=== PATIENT | male | born 1975 | race American Indian/Alaskan Native ===

== ENCOUNTER 2019-09-05 08:20 | Emergency (ER) | payer SELFPAY ==
[2019-09-05] MEDS ORDERED: SILVER NITRATE APPLICATOR 1 EA TP ONE ×2 (09:56→09:59)
[2019-09-05] MEDS ORDERED: OXYMETAZOLINE 0.05% NASAL SPRAY NS ONE (09:56)
[2019-09-05 10:10] VITALS: BP 152/96
--- NOTE | 2019-09-05 10:55 | Emergency Department Report ---
ED General Adult HPI - General Chief complaint: Nosebleed Stated complaint: NOSE BLEED Time Seen by Provider: 09/05/19 09:50 Source: patient Mode of arrival: Ambulatory Limitations: No Limitations - History of Present Illness Initial comments: Patient is a 44-year-old gentleman who is presenting with nosebleed. Patient states he has blood coming from the left nostril since this morning. Patient's had a cough and congestion for the last 2-3 days. He denies any fevers chills but does have some mild shortness of breath. Patient's states he was quite upset at the time of his arrival because of the nosebleed C believe that his elevated blood pressure is coming from that. Patient has no history of hypertension. Patient denies chest pain nausea vomiting diarrhea neck Stiffness or sore throat this time. Severity scale (0 -10): 0 - Related Data Previous Rx's Medication Instructions Recorded Last Taken Type Benzonatate [Tessalon Perles] 100 mg PO Q8HR #10 capsule 09/05/19 Unknown Rx Fluticasone [Flonase] 1 spray NS QDAY #1 bottle 09/05/19 Unknown Rx predniSONE [Deltasone] 20 mg PO QDAY #5 tab 09/05/19 Unknown Rx Allergies Allergy/AdvReac Type Severity Reaction Status Date / Time No Known Allergies Allergy Unverified 09/05/19 08:24 ED Review of Systems ROS: Stated complaint: NOSE BLEED Other details as noted in HPI Comment: All other systems reviewed and negative ED Past Medical Hx - Past Medical History Previous Medical History?: No - Surgical History Past Surgical History?: No - Social History Smoking Status: Never Smoker Substance Use Type: None - Medications Home Medications: Home Medications Medication Instructions Recorded Confirmed Last Taken Type Benzonatate [Tessalon Perles] 100 mg PO Q8HR #10 capsule 09/05/19 Unknown Rx Fluticasone [Flonase] 1 spray NS QDAY #1 bottle 09/05/19 Unknown Rx predniSONE [Deltasone] 20 mg PO QDAY #5 tab 09/05/19 Unknown Rx ED Physical Exam - General Limitations: No Limitations General appearance: alert, in no apparent distress - Head Head exam: Present: atraumatic, normocephalic - Eye Eye exam: Present: normal appearance, PERRL, EOMI - ENT ENT exam: Present: mucous membranes moist, other (patient has a small amount of blood coming from the left nostril. He has turbinates do appear to be erythematous with some small punctate areas of bleeding.) - Neck Neck exam: Present: normal inspection - Respiratory Respiratory exam: Present: normal lung sounds bilaterally. Absent: respiratory distress, wheezes, rales, rhonchi, stridor - Cardiovascular Cardiovascular Exam: Present: regular rate, normal rhythm. Absent: systolic murmur, diastolic murmur, rubs, gallop - GI/Abdominal GI/Abdominal exam: Present: soft, normal bowel sounds. Absent: distended, tenderness, guarding, rebound - Rectal Rectal exam: Present: deferred - Extremities Exam Extremities exam: Present: normal inspection - Back Exam Back exam: Present: normal inspection - Neurological Exam Neurological exam: Present: alert, oriented X3 - Psychiatric Psychiatric exam: Present: normal affect, normal mood - Skin Skin exam: Present: warm, dry, intact, normal color. Absent: rash ED Course Vital Signs 09/05/19 09/05/19 08:21 10:09 Pulse Rate 90 75 Respiratory 20 18 Rate Blood Pressure 185/119 Blood Pressure 152/96 [Left] O2 Sat by Pulse 98 98 Oximetry ED Medical Decision Making - Medical Decision Making The patient's lungs are clear to auscultation his O2 sat was within normal limits. Patient likely with an acute bronchitis causing some dryness in the upper respiratory area that is leading to his nosebleed. Patient was given some Afrin and was able to use a silver nitrate stick to cauterize the small punctate areas that were bleeding. Patient is monitored and had no further bleeding before the time of discharge. Patient be given medications for his up per respiratory symptoms as well patient be discharged home. Patient's blood pressure did improve on its own patient can follow-up as an outpatient. Critical care attestation.: If time is entered above; I have spent that time in minutes in the direct care of this critically ill patient, excluding procedure time. ED Disposition Clinical Impression: Epistaxis Acute bronchitis Qualifiers: Bronchitis organism: unspecified organism Qualified Code(s): J20.9 - Acute bronchitis, unspecified Disposition: DC-01 TO HOME OR SELFCARE Is pt being admited?: No Does the pt Need Aspirin: No Condition: Stable Instructions: Acute Bronchitis (ED), Epistaxis (ED) Additional Instructions: The Sinex spray that was given to you in the emergency department should be used twice a day FOR the next 2 days and then discard Referrals: PRIMARY CARE, [Primary Care Provider] - 3-5 Days Time of Disposition: 10:54
== END 2019-09-05 11:02 | disposition home or self-care (01) ==
LOC: ED 08:20
DX: J20.9 Acute bronchitis, unspecified (principal); R04.0 Epistaxis

== ENCOUNTER 2020-08-17 15:30 | Emergency (ER) | payer BC ==
--- NOTE | 2020-08-17 18:13 | Emergency Department Report ---
- General Chief Complaint: Upper Respiratory Infection Stated Complaint: COLD Time Seen by Provider: 08/17/20 17:56 Source: patient Mode of arrival: Ambulatory Limitations: No Limitations - History of Present Illness Initial Comments: 44-year-old -[place] male in no acute distress complaining of flu-like symptoms lost of taste and smell lost of appetite, subjective fever, body aches, dry cough no vomiting 2 episodes of loose stool. Symptoms started 2 days ago he desires denies any past medical history not currently taking any medications he is a non-smoker. Patient states that 2 weeks ago he was tested for Covid and it was negative he has no known sick contact. He denies chest pain and shortness of breath MD Complaint: cough -: days(s) (2) Severity: moderate Consistency: constant Improves With: nothing Worsens With: nothing Associated Symptoms: chills, myalgias, cough, nausea, diarrhea Treatments Prior to Arrival: none - Related Data Previous Rx's Medication Instructions Recorded Last Taken Type Benzonatate [Tessalon Perles] 100 mg PO Q8HR #10 capsule 09/05/19 Unknown Rx Fluticasone [Flonase] 1 spray NS QDAY #1 bottle 09/05/19 Unknown Rx predniSONE [Deltasone] 20 mg PO QDAY #5 tab 09/05/19 Unknown Rx Amoxicillin [Trimox CAP] 1,000 mg PO Q8H 7 Days #42 capsule 08/17/20 Unknown Rx Azithromycin [Zithromax Z-HOLLIS] 0 mg PO DAILY #1 pack 08/17/20 Unknown Rx methylPREDNISolone [Medrol 4MG 4 mg PO DAILY #1 pkg 08/17/20 Unknown Rx DOSEPAK (21 tabs)] Allergies Allergy/AdvReac Type Severity Reaction Status Date / Time No Known Allergies Allergy Unverified 09/05/19 08:24 ED Review of Systems ROS: Stated complaint: COLD Other details as noted in HPI Comment: All other systems reviewed and negative Constitutional: chills, fever (Subjective), malaise ENT: denies: ear pain, throat pain, dental pain, hearing loss Respiratory: cough (Dry cough) Cardiovascular: denies: chest pain, palpitations, dyspnea on exertion Endocrine: denies: excessive sweating, flushing, intolerance to cold, intolerance to heat, increased urine Gastrointestinal: denies: abdominal pain, nausea, vomiting, constipation, melena Genitourinary: denies: dysuria Neurological: denies: headache, weakness, numbness, paresthesias Psychiatric: denies: anxiety, depression, auditory hallucinations, visual hallucinations, homicidal thoughts ED Past Medical Hx - Past Medical History Previous Medical History?: No - Surgical History Past Surgical History?: No - Social History Smoking Status: Never Smoker - Medications Home Medications: Home Medications Medication Instructions Recorded Confirmed Last Taken Type Benzonatate [Tessalon Perles] 100 mg PO Q8HR #10 capsule 09/05/19 Unknown Rx Fluticasone [Flonase] 1 spray NS QDAY #1 bottle 09/05/19 Unknown Rx predniSONE [Deltasone] 20 mg PO QDAY #5 tab 09/05/19 Unknown Rx Amoxicillin [Trimox CAP] 1,000 mg PO Q8H 7 Days #42 capsule 08/17/20 Unknown Rx Azithromycin [Zithromax Z-HOLLIS] 0 mg PO DAILY #1 pack 08/17/20 Unknown Rx methylPREDNISolone [Medrol 4MG 4 mg PO DAILY #1 pkg 08/17/20 Unknown Rx DOSEPAK (21 tabs)] ED Physical Exam - General Limitations: No Limitations General appearance: alert, in no apparent distress - Head Head exam: Present: atraumatic - Eye Eye exam: Present: normal appearance - ENT ENT exam: Present: mucous membranes dry, TM's normal bilaterally - Neck Neck exam: Present: normal inspection, full ROM. Absent: lymphadenopathy - Respiratory Respiratory exam: Present: normal lung sounds bilaterally. Absent: respiratory distress, wheezes, rales - Cardiovascular Cardiovascular Exam: Present: regular rate, normal heart sounds - GI/Abdominal GI/Abdominal exam: Present: soft. Absent: distended, tenderness, guarding, rebound - Rectal Rectal exam: Present: deferred - exam: Present: normal inspection - Extremities Exam Extremities exam: Present: normal inspection - Back Exam Back exam: Present: normal inspection - Neurological Exam Neurological exam: Present: alert, oriented X3 - Psychiatric Psychiatric exam: Present: normal affect - Skin Skin exam: Present: warm, dry, intact, normal color. Absent: rash ED Course Vital Signs 08/17/20 15:43 Temperature 99.6 F Pulse Rate 77 Respiratory 14 Rate Blood Pressure 125/72 O2 Sat by Pulse 90 Oximetry - Reevaluation(s) Reevaluation #1: 08/17/20 19:36 Patient well-appearing in no distress all findings discussed with him the importance of follow-up he verbally and getting tested for Covid he verbalized understanding ED Medical Decision Making - Radiology Data Radiology results: report reviewed FINDINGS: SUPPORT DEVICES: None. HEART /PULMONARY VASCULATURE: No significant abnormality. LUNGS / PLEURA: There are patchy bilateral airspace opacities throughout the lungs, pronounced in the lung bases no pleural effusion or pneumothorax. ADDITIONAL FINDINGS: No significant additional findings. IMPRESSION: Patchy bilateral airspace disease, most pronounced in the lung bases, compatible with pneumonia. - Medical Decision Making 44-year-old with flulike symptoms loss of taste since that smell chest x-ray consistent with pneumonia I discussed all findings with patient patient did not desaturate while in the emergency room he was ambulated around the ER and saturation remained actually improved from his initial presentation maintain around [id number]%. The plan is for Covid testing at a local clinic. And a follow-up within 48 hours patient will be discharged home with steroids amoxicillin and azithromycin - Differential Diagnosis COVID-19 pneumonia Critical Care Time: No Critical care attestation.: If time is entered above; I have spent that time in minutes in the direct care of this critically ill patient, excluding procedure time. ED Disposition Clinical Impression: Suspected COVID-19 virus infection Pneumonia Qualifiers: Pneumonia type: due to unspecified organism Laterality: bilateral Lung location: lower lobe of lung Qualified Code(s): J18.9 - Pneumonia, unspecified organism Disposition: DC-01 TO HOME OR SELFCARE Is pt being admited?: No Does the pt Need Aspirin: No Condition: Stable Instructions: Bacterial Pneumonia (ED), Airborne Precautions, Community- Acquired Pneumonia, Adult Additional Instructions: You must follow-up within 48 hours or sooner you can follow-up with your primary care doctor Dr. Muniz or return to this emergency room within 48 hours to get reassessed. Take antibiotic as instructed take steroids as instructed if you develop worsening symptoms such as difficulty breathing shortness of breath fever that is uncontrolled inability to eat please return to the emergency room immediately. Please refer to the brochure of given you with the areas that you can get Covid testing as soon as possible Prescriptions: methylPREDNISolone [Medrol 4MG DOSEPAK (21 tabs)] 4 mg PO DAILY #1 pkg Amoxicillin [Trimox CAP] 1,000 mg PO Q8H 7 Days #42 capsule Azithromycin [Zithromax Z-HOLLIS] 0 mg PO DAILY #1 pack Referrals: DEMARCUS MUNIZ MD [Staff Physician] - 3-5 Days Time of Disposition: 19:29
--- NOTE | 2020-08-17 18:34 | XRay Report ---
XR chest routine 2V INDICATION / CLINICAL INFORMATION: cough uri,. COMPARISON: None FINDINGS: SUPPORT DEVICES: None. HEART /PULMONARY VASCULATURE: No significant abnormality. LUNGS / PLEURA: There are patchy bilateral airspace opacities throughout the lungs, pronounced in the lung bases no pleural effusion or pneumothorax. ADDITIONAL FINDINGS: No significant additional findings. IMPRESSION: Patchy bilateral airspace disease, most pronounced in the lung bases, compatible with pneumonia. Signer Name: Nicolas Monique MD Signed: 08/17/2020 6:29 PM Workstation Name: [id number]
[2020-08-17 20:20] VITALS: BP 122/76
== END 2020-08-17 19:58 | disposition home or self-care (01) ==
LOC: ED 15:30
DX: J18.9 Pneumonia, unspecified organism (principal); Z20.828 Contact with and (suspected) exposure to other viral communicable diseases; Z79.2 Long term (current) use of antibiotics; Z79.899 Other long term (current) drug therapy
CPT/HCPCS: 71046